=== PATIENT | male | born 1960 | race Caucasian/White ===

== ENCOUNTER → 2016-03-25 | Outpatient (CLI) | payer OTHER ==
[~2016-03-25] MED LIST: DAYPRO600 M1 PO; SEPTRA DS 800 M1 TAB PO
== END | disposition home or self-care (01) ==
LOC: CT 02-22 16:00
DX: R91.1 Solitary pulmonary nodule (principal)

== ENCOUNTER 2016-06-10 10:30 | Emergency (ER) | payer OTHER ==
[~2016-06-10] VITALS: Wt 59.0 kg
[2016-06-10] MEDS ORDERED: FLOVENT DI100 MCG/Ac IH (10:38)
[2016-06-10] MEDS ORDERED: PROAIR HFA8.5 GM INH (10:38)
== END 2016-06-10 10:59 | disposition home or self-care (01) ==
LOC: ED 10:30
DX: S05.02XA Injury of conjunctiva and corneal abrasion without foreign body, left eye, initial encounter (principal); F17.200 Nicotine dependence, unspecified, uncomplicated; X58.XXXA Exposure to other specified factors, initial encounter; Y93.89 Activity, other specified; Y92.9 Unspecified place or not applicable; Y99.9 Unspecified external cause status

== ENCOUNTER 2017-02-11 18:48 | Emergency (ER) | payer OTHER ==
[~2017-02-11] VITALS: Wt 59.0 kg
[~2017-02-11 18:48] MED LIST changes: +FLOVENT DI100 MCG/Ac IH; +PROAIR HFA8.5 GM INH
== END 2017-02-12 00:44 | disposition home or self-care (01) ==
LOC: ED 18:48
DX: S60.211A Contusion of right wrist, initial encounter (principal); F17.200 Nicotine dependence, unspecified, uncomplicated; F10.10 Alcohol abuse, uncomplicated; Z79.899 Other long term (current) drug therapy; X58.XXXA Exposure to other specified factors, initial encounter; Y93.89 Activity, other specified; Y92.89 Other specified places as the place of occurrence of the external cause; Y99.8 Other external cause status

== ENCOUNTER → 2021-02-21 | Outpatient (CLI) | payer OTHER ==
[2021-02-21 12:06] LABS: BASO % 0.7 % (0.0-1.0); EOS # 0.2 10*3/uL (0.0-0.4); EOS % 3.5 % (1.0-4.0); LYMPH # 1.9 10*3/uL (1.3-4.4); LYMPH % 33.6 % (27.0-41.0); MEAN CELL VOLUME 93.9 fl (80.0-94.0); MEAN CORPUSCULAR HGB 31.5 pg (27.0-31.0); MEAN CORPUSCULAR HGB CONC 33.5 g/dl (33.0-37.0); MEAN PLATELET VOLUME 8.7 fl (9.6-12.3); MONO # 0.4 10*3/uL (0.1-1.0); MONO % 7.3 % (3.0-9.0); NEUT # 3.2 10*3/uL (2.3-7.9); NEUT % 54.7 % (47.0-73.0); PLATELET COUNT AUTOMATED 235 10*3/uL (130-400); RED BLOOD COUNT 4.26 10*6/uL (4.50-5.90); WHITE BLOOD COUNT 5.8 10*3/uL (4.8-10.8)
[2021-02-21 12:35] LABS: ALBUMIN 3.5 gm/dl (3.1-4.5); ALKALINE PHOSPHATASE 98 U/L (45-117); BUN 14 mg/dl (7-24); CHLORIDE 105 mmol/L (98-107); POTASSIUM 4.1 mmol/L (3.5-5.1); SGOT/AST 26 IU/L (3-35); SGPT/ALT 39 U/L (12-78); SODIUM 140 mmol/L (136-145)
[2021-02-22 08:08] LABS: HEP B CORE AB, IGM Negative (Negative); HEPATITIS B SURFACE AG Negative (Negative)
[2021-02-22 08:23] LABS: HEPATITIS C VIRUS ANTIBODY <0.1 s/co (0.0-0.9)
== END | disposition home or self-care (01) ==
LOC: LAB 11:40
PROVIDERS: ATTEND Anesthesiology Addiction Medicine
DX: F11.20 Opioid dependence, uncomplicated (principal); F14.11 Cocaine abuse, in remission

== ENCOUNTER 2021-12-31 02:06 | Emergency (ER) | payer OTHER ==
[~2021-12-31] VITALS: Ht 170.1 cm; Wt 56.7 kg
== END 2021-12-31 02:30 | disposition home or self-care (01) ==
LOC: ED 02:06
DX: F11.23 Opioid dependence with withdrawal (principal); F41.9 Anxiety disorder, unspecified; Z79.899 Other long term (current) drug therapy

== ENCOUNTER 2022-09-06 01:09 | Emergency (ER) | payer OTHER ==
[~2022-09-06] VITALS: Ht 172.7 cm; Wt 49.9 kg
[2022-09-06] MEDS ORDERED: SUBOXONE 8 MG-1 EACH SL (01:34)
== END 2022-09-06 02:33 | disposition home or self-care (01) ==
LOC: ED 01:09
DX: T63.461A Toxic effect of venom of wasps, accidental (unintentional), initial encounter (principal); L53.0 Toxic erythema; Z79.899 Other long term (current) drug therapy; Y92.89 Other specified places as the place of occurrence of the external cause

== ENCOUNTER 2022-11-07 10:17 | Emergency (ER) | payer OTHER ==
[~2022-11-07] VITALS: Ht 172.7 cm; Wt 54.4 kg
[~2022-11-07 10:17] MED LIST changes: +SUBOXONE 8 MG-1 EACH SL
== END 2022-11-07 13:34 | disposition home or self-care (01) ==
LOC: ED 10:17
DX: S00.01XA Abrasion of scalp, initial encounter (principal); S50.312A Abrasion of left elbow, initial encounter; S09.90XA Unspecified injury of head, initial encounter; Y04.8XXA Assault by other bodily force, initial encounter; Y93.89 Activity, other specified; Y92.89 Other specified places as the place of occurrence of the external cause; Y99.0 Civilian activity done for income or pay